=== PATIENT | male | born 1935 | race Caucasian/White ===

== ENCOUNTER 2016-09-05 07:26 | Day surgery (SDC) | payer MEDICARE, OTHER ==
[~2016-09-05] VITALS: Ht 167.6 cm; Wt 61.3 kg
[2016-09-05] VITALS (7 sets, daily range): BP systolic 128–143; BP diastolic 62–69; PULSE 54–67; RESP 13–18; Ht 167.6 cm; Wt 61.3 kg
[~2016-09-05 07:26] MED LIST: PROPOFOL 200 MG INJ ONE
[2016-09-05] MEDS ORDERED: DICLOFENAC 0.1% 2.5 ML OPH OPER SCH (08:30)
[2016-09-05] MEDS ORDERED: CIPROFLOXACIN 0.3% 2.5 ML OPH OPER SCH (08:30)
[2016-09-05] MEDS ORDERED: CYCLOPENTOLATE/PHENYLEPH 2 ML OPH OPER SCH (08:30)
[2016-09-05] MEDS ORDERED: TROPICAMIDE 1% 2 ML OPH OPER SCH (08:30)
[2016-09-05] MEDS ORDERED: DEXAMETHASONE 4 MG/ML 1 ML INJ INJ ONE (10:20)
[2016-09-05] MEDS ORDERED: HYALURONATE/CHONDROITIN 1ML OPH INJ IO ONE (10:20)
[2016-09-05] MEDS ORDERED: CEFAZOLIN 1 GM INJ INJ ONE (10:20)
[2016-09-05] MEDS ORDERED: CARBACHOL 0.01% 1.5 ML OPH INJ IO ONE (10:20)
--- NOTE | 2016-09-05 13:30 | OPR ---
DATE OF OPERATION: 09/05/2016 PREOPERATIVE DIAGNOSIS: Cataract, right eye. POSTOPERATIVE DIAGNOSIS: Cataract, right eye. OPERATION PERFORMED: Cataract extraction with lens implant, right eye. SURGEON: Rommel Lara MD ANESTHESIA: Dr. Kuhn DESCRIPTION OF OPERATION: The patient brought to the operating room on an eye gurney, positioned ap propriately, attached to electrocardiogram monitor and given oxygen via nasal cannula. The patient was then given some intravenous sedation and then received lidocaine, using 4% lidocaine given in li d block and retrobulbar injection. The patient was then prepped and draped in the usual sterile man ner and a speculum was inserted between the lids of the right eye. Two paracentesis incisions were made at the 1 o'clock and 11 o'clock positions through clear cornea and then a 3.0 mm keratome was u sed to enter the anterior chamber in a stepped corneal incision at the 12 o'clock position. Through this opening, an irrigating cystotome was introduced into the anterior chamber. The anterior chamb er was filled with DisCoVisc and then an anterior capsulotomy was performed. Balanced salt solution was used for phacoemulsification. The lens nucleus was emulsified. At the end of the removal of the lens nucleus while attempting to remove the epinuclear shell, a belén ak occurred in the center of the posterior capsule and some formed vitreous presented at the wound. An anterior vitrectomy was performed using mechanical vitrectomy and some local dissection. After this was completed, it was noted that there was capsular support for posterior chamber intraocular l ens and therefore, an 18.0 diopter posterior chamber intraocular lens (Bausch and Lomb model LI61AO) was inserted into the posterior chamber. The lens remained centered. One 10-0 nylon suture was placed across the wound and then the DisCoVisc was removed from the anteri or chamber. The suture was then tied, the ends were cut short, and the knot was buried. Then, 0.5 mL of Ancef and 0.5 mL of dexamethasone were injected into the inferior conjunctival fornix. Vigamo x drops were placed on the surface of the eye and the eye was patched. The patient left the operati ng room in satisfactory condition. Dictated By: ROMMEL HOWE/ITZ Conf#: [id number] DID#: [id number]
== END 2016-09-05 12:35 | disposition home or self-care (01) ==
LOC: SDS 07:26
PROVIDERS: ATTEND Ophthalmology
DX: H26.9 Unspecified cataract (principal); N40.0 Benign prostatic hyperplasia without lower urinary tract symptoms
CPT/HCPCS: 66984; J0690; J1100; V2632